=== PATIENT | female | born 1970 | race Caucasian/White ===

== ENCOUNTER → 2017-11-06 | Outpatient (CLI) | payer BC ==
[~2017-11-06] MED LIST: ASPI-1441 PO; CEPH-13 PO; CIP500 PO; ERGO500025 PO; HYDR-385 PO; HYDR12.558 PO; IBU600 PO; INSU100C14 SQ; INSULIN; METF-420 PO; OMEP-218 PO; PAN20 PO; PER PO; TAM4 PO; VENL-10 PO; VENL75TA PO; WATER PILL; [UNRECOGNIZED DRUG - OTHER]
--- NOTE | 2017-11-06 08:39 | RADIOLOGY IMAGING REPORT ---
FACILITY: [facility] - [place] PATIENT NAME: Viridiana Mcconnell : 1970 MR: [id number] V: [id number] EXAM DATE: ORDERING PHYSICIAN: DEVIKA NIELSON TECHNOLOGIST: Location: [facility] [place] Patient: Viridiana Mcconnell : 1970 Visit/Account:[id number] Date of Sevice: 11/06/2017 ABDOMEN/PELVIS W/O CONTRAST HISTORY: History of renal stones TECHNIQUE: Axial images acquired through the abdomen/pelvis. Coronal and sagittal reformatting also performed. No IV contrast administered. One of the following dose optimization techniques was utili zed in the performance of this exam: Automated exposure control; adjustment of the mA and/or kV accor ding to the patient's size; or use of an iterative reconstruction technique. Specific details can b e referenced in the facility's radiology CT exam operational policy. COMPARISON: CT abdomen pelvis 09/14/2009 FINDINGS: Visualized lung bases: Negative. Hepatobiliary: Remote cholecystectomy. Liver is unremarkable. Spleen: Negative. Adrenals: Negative. Pancreas: Negative. Kidneys ureters and bladder: There is a single 6 mm nonobstructive stone in the right kidney and a si ngle 6 mm nonobstructive stone left kidney both located at the corticomedullary junctions. Both stone s have developed since 2008. There is no evidence of hydronephrosis. Ureters appear normal without ev idence of stones. Urinary bladder normal. Genitalia: Remote hysterectomy. GI: Again seen is evidence of a Latonia-en-Y gastroplasty. GI tract otherwise unremarkable. The appendi x is well-visualized, air filled and normal. There are no diverticuli in the colon. Vessels/spaces/nodes: Negative. Bones/soft tissues: Negative. Additional findings: The previous study demonstrated a ventriculoperitoneal shunt. This shunt has be en disconnected or dislodged. The disconnected Shunt tubing is located in the pelvis.. IMPRESSION: Bilateral nephrolithiasis with single nonobstructive stone in each kidney. Dislodged or disconnected ventriculoperitoneal shunt. Shunt tubing is coiled in the pelvis. Remote Latonia-en-Y surgery unchanged. No acute pathology identified. Report Dictated By: Dom Rodríguez MD at 11/06/2017 8:23 AM Report E-Signed By: Dom Rodríguez MD at 11/06/2017 8:35 AM WSN:[id number]
== END ==
LOC: CT 01:41
PROVIDERS: ATTEND Urology
DX: N20.0 Calculus of kidney (principal); Z90.49 Acquired absence of other specified parts of digestive tract; Z90.710 Acquired absence of both cervix and uterus

== ENCOUNTER 2019-01-23 21:07 | Emergency (ER) | payer BC ==
[~2019-01-23 21:07] MED LIST changes: -ADDE30XRPT PO; -BUPR200T34 PO; -BUPR300T56 PO; -CYCL10TA29 IM; -DESV50TA PO; -LANS30TA12 PO; -LORA-630 PO; -ROPI4TAB2 PO
--- NOTE | 2019-01-23 21:07 | ER Report ---
History and Physical Time Seen By MD: 21:07 HPI/ROS CHIEF COMPLAINT: anxiety HISTORY OF PRESENT ILLNESS: This is a 48 year old female. She had sudden onset of shortness of breath and chest pain shortly after being served with divorce papers [employer]. She feels like she cannot catch her breath. No recent illness. No history of cardiac or lung problems. She has been under a lot of stress recently with her relationship, was in a domestic with her last night. No fevers or chills. No nausea or vomiting. No prior history of panic attacks. Allergies: Coded Allergies: No Known Drug Allergies (Unverified , 10/20/12) Home Meds Active Scripts Lorazepam (LORAZEPAM) 0.5 Mg Tablet, 0.25 MG PO Q6H PRN for ANXIETY, #6 TAB 0 Refills Prov:CHRISTIANO BARRETO MD 01/23/19 Reported Medications Desvenlafaxine (DESVENLAFAXINE ER) 50 Mg Tab.er.24h, 50 MG PO QDAY 01/23/19 Ropinirole Hcl (ROPINIROLE HCL) 4 Mg Tab.er.24h, 4 MG PO QHS 01/23/19 Amphet Asp/Amphet/D-Amphet (ADDERALL XR 30 MG CAPSULE) 30 Mg Cap.er.24h, 30 MG PO QDAY 01/23/19 Bupropion HCl (Bupropion HCl ER) 200 Mg Tablet.er, 150 MG PO QDAY 01/23/19 Bupropion Hcl (BUPROPION XL) 300 Mg Tab.er.24h, 300 MG PO QDAY, #10 TAB 01/23/19 Lansoprazole (PREVACID) 30 Mg Tab.rap.dr, 15 MG PO BID, TAB 01/23/19 Cyclobenzaprine Hcl (CYCLOBENZAPRINE HCL) 10 Mg Tablet, 1000 MCG IM qmonth, #9 TAB 01/23/19 Discontinued Reported Medications Omeprazole Magnesium (PRILOSEC OTC) 20 Mg Tablet., 1 TAB PO QDAY, TAB 10/19/16 Discontinued Scripts Hydrocodone Bit/Acetaminophen (HYDROCODON-ACETAMINOPHEN 5-325) 1 Each Tablet, 1 EACH PO Q6H for PAIN, #6 TAB 0 Refills Prov:SHAUN WALLACE MD 10/19/16 Cephalexin (KEFLEX) 500 Mg Capsule, 500 MG PO Q6H, #20 CAP 0 Refills TAKE ONE CAPSULE BY MOUTH EVERY SIX HOURS Prov:SHAUN WALLACE MD 10/19/16 Reviewed Nurses Notes: Yes Hx Smoking: Yes Hx Substance Use Disorder: Yes (METH CURRENTLY TRYING TO QUIT) Hx Alcohol Use: No Constitutional Vital Sign - Last 24 Hours 01/23/19 01/23/19 01/23/19 01/23/19 21:09 21:22 21:30 21:37 Temp 98.9 Pulse 79 80 86 Resp 30 23 15 B/P (MAP) 128/91 111/71 (84) Pulse Ox 95 94 88 O2 Delivery Room Air Room Air Room Air 01/23/19 01/23/19 01/23/19 01/23/19 21:42 21:54 21:57 22:00 Pulse ??? 80 Resp 18 16 B/P (MAP) 128/81 (97) 133/87 (102) Pulse Ox 88 O2 Delivery Room Air Room Air 01/23/19 01/23/19 01/23/19 01/23/19 22:12 22:17 22:22 22:27 Pulse 90 89 92 93 Resp 12 12 13 16 Pulse Ox 90 92 92 92 O2 Delivery Room Air Room Air Room Air Room Air 01/23/19 01/23/19 01/23/19 01/23/19 22:30 22:32 22:37 22:42 Pulse 89 90 89 Resp 16 12 14 B/P (MAP) 127/99 (108) Pulse Ox 93 95 90 O2 Delivery Room Air Room Air Room Air Intake and Output 01/23/19 01/23/19 01/24/19 15:00 23:00 07:00 Intake Total 1000 ml Balance 1000 ml Physical Exam General Appearance: The patient is alert. Very anxious, hyperventilating. Difficulty focusing and talking. Eyes: Pupils are equal, round. Reactive to light. No pallor, injection or icterus. Extraocular movements are intact. ENT: Mucous membranes are moist. Normal oral mucosa. Posterior oropharynx is normal. Neck: Supple and non tender. Respiratory: Lungs are clear to auscultation, but is tachypneaic. Cardiovascular: Regular rate and rhythm. No murmurs, gallops or rubs. Normal capillary refill. Gastrointestinal: Abdomen is soft and non tender. Nondistended. Normal active bowel sounds. Neurological: Alert and oriented x3. No focal neurologic deficits Skin: Warm and dry. DIFFERENTIAL DIAGNOSIS: After history and physical exam, differential diagnosis was considered for a patient with shortness of breath and chest pain, likely panic attack, but will rule out other pulmonary and cardiac causes. Medical Decision Making Data Points Result Diagram: 01/23/19211201/23/192112 Laboratory Hematology Test 01/23/19 21:13 Red Blood Count 4.76 M/uL (4.17-5.56) Mean Corpuscular Volume 88.8 fL (80.0-96.0) Mean Corpuscular Hemoglobin 29.7 pg (26.0-33.0) Mean Corpuscular Hemoglobin Concent 33.4 g/dL (32.0-36.0) Red Cell Distribution Width 14.3 % (11.5-14.5) Mean Platelet Volume 7.2 fL (7.2-11.1) Neutrophils (%) (Auto) 63.4 % (39.4-72.5) Lymphocytes (%) (Auto) 29.4 % (17.6-49.6) Monocytes (%) (Auto) 5.1 % (4.1-12.4) Eosinophils (%) (Auto) 1.2 % (0.4-6.7) Basophils (%) (Auto) 0.9 % (0.3-1.4) Nucleated RBC Relative Count (auto) 0.0 /100WBC Neutrophils # (Auto) 5.3 K/uL (2.0-7.4) Lymphocytes # (Auto) 2.4 K/uL (1.3-3.6) Monocytes # (Auto) 0.4 K/uL (0.3-1.0) Eosinophils # (Auto) 0.1 K/uL (0.0-0.5) Basophils # (Auto) 0.1 K/uL (0.0-0.1) Nucleated RBC Absolute Count (auto) 0.00 K/uL Sodium Level 142 mmol/L (137-145) Potassium Level 3.7 mmol/L (3.5-5.0) Chloride Level 109 mmol/L (98-107) Carbon Dioxide Level 22 mmol/L (22-31) Blood Urea Nitrogen 14 mg/dl (7-18) Creatinine 1.00 mg/dl (0.52-1.04) Glomerular Filtration Rate Calc 58.9 Random Glucose 126 mg/dl (75-110) Calcium Level 9.4 mg/dl (8.4-10.2) Total Bilirubin 0.3 mg/dl (0.2-1.3) Aspartate Amino Transf (AST/SGOT) 20 U/L (0-35) Alanine Aminotransferase (ALT/SGPT) 23 U/L (0-56) Alkaline Phosphatase 113 U/L (0-126) Troponin I < 0.012 ng/ml Total Protein 7.2 g/dl (6.3-8.2) Albumin 4.4 g/dl (3.5-5.0) Chemistry Test 01/23/19 21:13 White Blood Count 8.3 k/uL (4.5-11.0) Red Blood Count 4.76 M/uL (4.17-5.56) Hemoglobin 14.1 g/dL (12.0-16.0) Hematocrit 42.2 % (34.0-47.0) Mean Corpuscular Volume 88.8 fL (80.0-96.0) Mean Corpuscular Hemoglobin 29.7 pg (26.0-33.0) Mean Corpuscular Hemoglobin Concent 33.4 g/dL (32.0-36.0) Red Cell Distribution Width 14.3 % (11.5-14.5) Platelet Count 282 K/uL (150-450) Mean Platelet Volume 7.2 fL (7.2-11.1) Neutrophils (%) (Auto) 63.4 % (39.4-72.5) Lymphocytes (%) (Auto) 29.4 % (17.6-49.6) Monocytes (%) (Auto) 5.1 % (4.1-12.4) Eosinophils (%) (Auto) 1.2 % (0.4-6.7) Basophils (%) (Auto) 0.9 % (0.3-1.4) Nucleated RBC Relative Count (auto) 0.0 /100WBC Neutrophils # (Auto) 5.3 K/uL (2.0-7.4) Lymphocytes # (Auto) 2.4 K/uL (1.3-3.6) Monocytes # (Auto) 0.4 K/uL (0.3-1.0) Eosinophils # (Auto) 0.1 K/uL (0.0-0.5) Basophils # (Auto) 0.1 K/uL (0.0-0.1) Nucleated RBC Absolute Count (auto) 0.00 K/uL Glomerular Filtration Rate Calc 58.9 Calcium Level 9.4 mg/dl (8.4-10.2) Total Bilirubin 0.3 mg/dl (0.2-1.3) Aspartate Amino Transf (AST/SGOT) 20 U/L (0-35) Alanine Aminotransferase (ALT/SGPT) 23 U/L (0-56) Alkaline Phosphatase 113 U/L (0-126) Troponin I < 0.012 ng/ml Total Protein 7.2 g/dl (6.3-8.2) Albumin 4.4 g/dl (3.5-5.0) EKG/Imaging EKG Interpretation 12 lead EKG: Rhythm: Normal sinus rhythm with sinus arrhythmia, rate 70 [place]: normal QRS: normal ST segments: normal Imaging 2 VIEWS CHEST INDICATION: Chest pain. COMPARISON: 08/18/2009. FINDINGS: Cardiomediastinal silhouette and pulmonary vessels within normal limits. There is no focal infiltrate or lobar consolidation. There is no pneumothorax or pleural effusion. No nodule. Upper abdomen is unremarkable. No acute bony abnormality. IMPRESSION: 1. No acute cardiopulmonary process. Report Dictated By: Michael Shankar at 01/23/2019 10:18 PM ED Course/Re-evaluation Clinical Indication for ER IV: Hydration, IV Access ED Course Aspirin given initially. Also gave Ativan 0.5 mg IV. Immediately resolved the shortness of breath and hyperventilating. Labs, imaging and EKG negative. Appears anxiety related and did provide a prescription for some Ativan to use over the next few days and recommended counseling if needed. Decision to Disposition Date: Jan 23, 2019 Decision to Disposition Time: 22:37 Depart Departure Latest Vital Signs Vital Signs Date Time Temp Pulse Resp B/P (MAP) Pulse Ox O2 Delivery O2 Flow Rate FiO2 01/23/19 22:42 89 14 90 Room Air 01/23/19 22:30 127/99 (108) 01/23/19 21:09 98.9 Impression: Primary Impression: Panic attack Condition: Improved Disposition: HOME OR SELF-CARE Referrals: ROYAL HERNANDEZ (PCP) New Scripts Lorazepam (LORAZEPAM) 0.5 Mg Tablet 0.25 MG PO Q6H PRN for ANXIETY, #6 TAB 0 Refills Prov: CHRISTIANO BARRETO MD 01/23/19 Patient Instructions: Panic Attack (ED) Additional Instructions: The symptoms you experienced tonight seem to have been due to an anxiety attack or panic attack. This was likely due to the stress of current events you are going through. We recommend that if needed, you seek counseling to help with the stress of these events. In the short term, we can provide a medicine to use to help with anxiety if it is too severe. We recommend only using this medicine as needed, as it can cause dependence, and will be providing only a very small prescription. Ativan (lorazepam) 0.5mg tablets, take 1/2 tablet every 6 hours as needed for severe anxiety or panic attack. CHRISTIANO BARRETO MD Jan 23, 2019 21:07
[2019-01-23] MEDS ORDERED: LORazepam 0.5 MG TAB PO ONE (21:10)
[2019-01-23] MEDS ORDERED: ASPIRIN 81 MG CHEW PO ONE (21:10)
[2019-01-23] MEDS ORDERED: NS(*) 0.9% 1000 ML BAG 1,000 ML IV ONE (21:10)
[2019-01-23 21:21] LABS: PLATELET COUNT, AUTOMATED 282 K/uL (150-450)
[2019-01-23] MEDS ORDERED: LORazepam 2 MG/ML VIAL IVP ONE (21:25)
[2019-01-23] MEDS ORDERED: CYCL10TA29 IM (21:37)
[2019-01-23] MEDS ORDERED: LANS30TA12 PO (21:37)
[2019-01-23] MEDS ORDERED: ROPI4TAB2 PO (21:37)
[2019-01-23] MEDS ORDERED: ADDE30XRPT PO (21:37)
[2019-01-23] MEDS ORDERED: BUPR200T34 PO (21:37)
[2019-01-23] MEDS ORDERED: DESV50TA PO (21:37)
[2019-01-23] MEDS ORDERED: BUPR300T56 PO (21:37)
--- NOTE | 2019-01-23 21:53 | EKG ---
FACILITY: [facility] - [place] PATIENT NAME: ESTRELLITA GALLOWAY : [id number] MR: [id number] V: [id number] EXAM DATE: ORDERING PHYSICIAN: CHRISTIANO BARRETO TECHNOLOGIST: SEEMA Tai Reason : CP AND ANXIETY Blood Pressure : / mmHG Vent. Rate : 070 BPM Atrial Rate : 070 BPM P-R Int : 170 ms QRS Dur : 090 ms QT Int : 408 ms P-R-T Axes : 062 064 075 degrees QTc Int : 440 ms Sinus rhythm Nonspecific ST findings anterior leads No previous ECGs available Confirmed by ROSENDO WADE ([id number] on 01/24/2019 5:27:39 AM Referred By: Confirmed By:ROSENDO WADE
--- NOTE | 2019-01-23 22:23 | RADIOLOGY IMAGING REPORT ---
FACILITY: [facility] PATIENT NAME: Viridiana Mcconnell : 1970 MR: [id number] V: [id number] EXAM DATE: ORDERING PHYSICIAN: CHRISTIANO BARRETO TECHNOLOGIST: Location: [facility] [place] Patient: Viridiana Mcconnell : 1970 Visit/Account:[id number] Date of Sevice: 01/23/2019 2 VIEWS CHEST INDICATION: Chest pain. COMPARISON: 08/18/2009. FINDINGS: Cardiomediastinal silhouette and pulmonary vessels within normal limits. There is no focal infiltrate or lobar consolidation. There is no pneumothorax or pleural effusion. No nodule. Upper abdomen is unremarkable. No acute bony abnormality. IMPRESSION: 1. No acute cardiopulmonary process. Report Dictated By: Mcihael Shankar at 01/23/2019 10:18 PM Report E-Signed By: Michael Shankar at 01/23/2019 10:19 PM WSN:[id number]
[2019-01-23 22:30] VITALS: BP 127/99
[2019-01-23] MEDS ORDERED: LORA-630 PO (22:39)
== END 2019-01-23 22:51 | disposition home or self-care (01) ==
LOC: ER 21:15
DX: F41.0 Panic disorder [episodic paroxysmal anxiety] (principal)
CPT/HCPCS: 71046; 84484; 85025; 93005; 96361; 96374; 99284; J2060; J7030; 82040; 82247; 82310; 82374; 82435; 82565; 82947; 84075; 84132; 84155; 84295; 84450; 84460; 84520

== ENCOUNTER → 2019-01-23 | Outpatient (CLI) | payer BC ==
[~2019-01-23] MED LIST changes: +ADDE30XRPT PO; +BUPR200T34 PO; +BUPR300T56 PO; +CYCL10TA29 IM; +DESV50TA PO; +LANS30TA12 PO; +LORA-630 PO; +ROPI4TAB2 PO
== END ==
LOC: AMB 20:43
PROVIDERS: ATTEND Nurse Practitioner
DX: F41.9 Anxiety disorder, unspecified (principal); R07.1 Chest pain on breathing; R06.02 Shortness of breath
CPT/HCPCS: A0425; A0427